=== PATIENT | female | born 1955 | race Caucasian/White ===

== ENCOUNTER 2023-12-25 13:56 | Emergency (ER) | payer BC, SELFPAY ==
[2023-12-25 13:58] VITALS: BP 209/96
[2023-12-25 14:57] VITALS: BP 163/80
--- NOTE | 2023-12-25 14:58 | ED.GENMED ---
History of Present Illness
General
Chief Complaint: Chest Pain
Source: patient
Exam Limitations: none
Time Seen by Provider: 12/25/23 14:57
Nursing documentation reviewed up to this point in time: agreed with
Travel History
Have you had any contact with someone who has COVID-19?: No
Do you have any symptoms of coronavirus? Fever > 100 degrees, chills, cough, shortness of breath, sore throat, loss of taste or smell, muscle aches, or headache?: No
History of Present Illness
History of Present Illness:
The patient is a 68-year-old female with a past medical history of hypertension who presents with 3 days of fairly constant bilateral chest pressure. Patient reports that she also feels slightly more short of breath on exertion. She denies any
cough and fever. She denies leg pain and leg swelling. She denies history of PE and DVT. Currently, the pain is extremely mild. She reports nothing makes the pressure better or worse. There is no radiation of discomfort. Patient denies a
history of coronary artery disease.
Past History
Past History
ED Past Medical History: HTN and Other (Psoriasis)
ED Past Surgical History: Gynecological (Tubal ligation)
Social History
Tobacco: Non-smoker
Alcohol: None
Drug: None
Personal:
Living: with family
Employment: Other
Family History
Family History: Other
Review of Systems
Review of Systems
Allergies reviewed?: Yes
All Other Systems: ROS reviewed and negative except as documented in HPI and ROS
EENT: Reports no symptoms
Respiratory: Reports trouble breathing
Cardiac: Reports chest pain
ABD/GI: Reports no symptoms
: Reports no symptoms
Musculoskeletal: Reports no symptoms
Skin: Reports no symptoms
Neurological: Reports no symptoms
Endocrine: Reports no symptoms
Hematologic/Lymphatic: Reports no symptoms
Psychiatric: Reports no symptoms
Phy Exam
Physical Exam
Physical Exam:
Physical Exam
General: no apparent distress, not acutely ill. Well and comfortable appearing
Neck: supple. no meningeal signs. normal psoterior pharynx
Heart: s1/s2 regular rate and rhythm, no murmur. equal radial pulses.
Lungs: no acute respiratory distress. clear bilaterally. No reproducible chest pain when taking a deep breath
Abdomen: normal bowel sounds. not tender. no CVAT. No pulsatile mass
Neuro: alert and oriented. no focal neurological deficits
Skin: no rash
Psychiatric: well kept. interactive and cooperative
Extremities: no edema. no calf tenderness. negative homans. good distal pulses
Scores
Heart Score for Chest Pain Patients
STEMI patient?: No
History: Slightly or Non-Suspicious
ECG: Normal
Age: >/= 65 years
Risk Factors: 1 or 2 Risk Factors
Troponin: </= Normal Limit
Heart Score for Chest Pain Patients: 3
Heart Score Risk: 2.5% MACE over next 6 weeks
Course
Orders/Labs/Results
Orders:
Orders
12/25/23 14:01
EKG [Electrocardiogram (*1)] Urgent
Reason for Study: Chest Pain
EKG- Treatment ONCE
12/25/23 15:09
CR Chest - 2 Views Urgent
Comment:
Reason For Exam: CP
12/25/23 15:22
Complete Blood Count/With Diff Urgent
Comprehensive Metabolic Panel Urgent
Troponin I Urgent
Abnormal Lab Results
12/25/23
15:22
MCH 31.8 H pg
(27.0-31.0)
MPV 12.5 H fL
(7.4-10.4)
Absolute Monos (auto) 0.8 H 10^3/uL
(0.1-0.6)
Monocytes % 11.0 H %
(1.7-9.3)
Chloride 109 H mmol/L
(98-107)
BUN 20 H mg/dl
(7-17)
Creatinine 0.5 L mg/dL
(0.6-1.0)
Glucose 114 H mg/dl
(70-99)
Calcium 10.3 H mg/dl
(8.4-10.2)
AST 69 H U/L
(14-36)
ALT 55 H U/L
(0-35)
12/25/23 15:22
12/25/23 15:22
Vital Signs
Initial and Last Documented VS:
Initial Vital Signs
Temp Pulse Resp BP Pulse Ox
98.4 F 74 18 209/96 98
12/25/23 13:58 12/25/23 13:58 12/25/23 13:58 12/25/23 13:58 12/25/23 13:58
Last Documented Vital Signs
Temp Pulse Resp BP Pulse Ox
98.4 F 61 16 143/75 96
12/25/23 17:16 12/25/23 17:16 12/25/23 17:16 12/25/23 17:16 12/25/23 17:16
MDM/Problems Addressed
Differential Diagnosis Includes:
Acute coronary syndrome, musculoskeletal chest pain, PE
MDM/Problems Addressed:
Patient presents with acute 3 days of chest tightness
Chronic conditions affecting care: HTN
Acute Exacerbation and/or Progression of Chronic Illness:
Patient is acutely hypertensive, however, on rechecking her blood pressure was 143/75
*Radiology
Radiology exam reviewed: preliminary read by ED provider (Chest x-ray read by me. No acute disease) and radiology read reviewed
*Critical Care Note
Total Time (30-74mins, 75-104mins- exclusive of procedures): Not Applicable
Data Reviewed
Review of Other/Old Records Reveals: Testing (Echo from 2020 showed mild LVH with normal EF)
Source: patient
Patient Management
Social determinants of health affecting care: Living situation and Strong social support
Escalation/DeEscalation of care consider admission/obs:
Patient ravinder very well and comfortable appearing. Given patient has no pleuritic chest pain, hypoxia or tachycardia, it is doubtful she has a PE. In addition, she has had no risk factors for this. It is doubtful she is acute coronary syndrome
because her EKG is normal and troponin is normal
ED Attending Note
-
Portions of this chart may have been created with voice recognition software.� Occasional wrong word or��sound alike� substitutions may have occurred due to the inherent limitations of voice recognition software.
Discharge Plan
Departure
Patient Disposition: Home (Routine Discharge)
Date of Disposition: 12/25/23
Time of Disposition: 16:47
Patient with high blood pressure during this ER visit?: Yes
Condition: Good
Covid-19: Not Applicable
Discharge Problem:
Chest pain in adult
Instructions: Chest Pain DCA Follow Up
Prescriptions:
No Action
multivitamin [Multi-Day] 1 EACH tablet
1 ea PO DAILY
metoprolol tartrate 50 MG tablet
50 mg PO DAILY
B-complex with vitamin C 1 CAPLET tablet
1 cap PO DAILY
losartan-hydrochlorothiazide 1 EACH tablet
1 ea PO DAILY
Vitamin D
1,000 mcg PO DAILY
polyethylene glycol 3350 17 GRAMS powder in packet
17 grams PO DAILY Qty: 30 0RF
Rx Instructions:
continue while on narcotics
oxycodone-acetaminophen 5 MG/325 MG tablet
2 tab PO Q4HPRN PRN (Reason: moderate pain) Qty: 30 0RF
rifampin 300 MG capsule
300 mg PO Q12 0RF
docusate sodium 100 MG capsule
100 mg PO BID Qty: 60 0RF
Rx Instructions:
continue while on narcotics
morphine 15 MG tablet extended release
15 mg PO Q12 Qty: 14 0RF
Saccharomyces boulardii 250 MG capsule
250 mg PO DAILY Qty: 30 0RF
Rx Instructions:
continue while on antibiotics
cefazolin in dextrose (iso-os) 2 GRAM/50 ML piggyback
2 g IV Q6H 0RF
Referrals:
Deni Beck MD [Family Provider] -
Activity Restrictions/Additional Instructions:
If you do not hear from your senior [facility]str[facility] office within 48 hours, please give them a call to schedule an appointment
Interventions
Interventions:
*Risk Screen - Suicide Last Done: 12/25/23 13:58
*General Assessment Last Done: 12/25/23 13:58
*Neglect/Abuse Screening Last Done: 12/25/23 13:58
*ED COVID-19 Vaccine History Last Done: 12/25/23 13:58
*Nursing Disposition Last Done: 12/25/23 17:16
ED- Cardiac Assessment Last Done: 12/25/23 17:11
Discharge Date and Time
Discharge Date/Time: 12/25/23 17:17
Print Language: ALBANIAN
[2023-12-25 14:59] VITALS: BMI 45.6
[2023-12-25 15:00] VITALS: BP 143/75
[2023-12-25 15:39] LABS: % Basophils 0.5 % (0-2); % Eosinophils 2.4 % (0-6); % Immature Granulocytes 0.5 % (0-0.5); % Lymphocytes 30.2 % (20.5-51.1); % Neutrophils 55.4 % (42.2-75.2); Absolute Eosinophils 0.2 10^3/uL (0-0.7); Absolute Lymphocytes 2.3 10^3/uL (1.2-3.4); Absolute Monocytes 0.8 10^3/uL (0.1-0.6); Absolute Neutrophils 4.1 10^3/uL (1.4-6.5); Hematocrit 38.5 % (37.0-47.0); Hemoglobin 13.5 g/dL (12.0-16.0); Mean Corp Hgb Conc. 35.1 g/dL (33.0-37.0); Mean Corpuscular Hgb 31.8 pg (27.0-31.0); Mean Corpuscular Volume 90.6 fL (81.0-99.0); Mean Platelet Volume 12.5 fL (7.4-10.4); Nucleated Red Blood Cells % 0 %; Platelet Count 153 10^3/uL (130-400); Red Blood Cell Count 4.25 10^6/uL (4.20-5.40); Red Cell Dist. Width 13.5 % (11.5-14.5); White Blood Cell Count 7.5 10^3/uL (4.8-10.8)
[2023-12-25 15:58] LABS: ALT (SGPT) 55 U/L (0-35); AST (SGOT) 69 U/L (14-36); Albumin 4.2 g/dl (3.5-5.0); Alkaline Phosphatase 75 U/L (38-126); Blood Urea Nitrogen 20 mg/dl (7-17); Calcium 10.3 mg/dl (8.4-10.2); Carbon Dioxide 22 mmol/L (22-30); Chloride 109 mmol/L (98-107); Estimated Creatinine Clearance > 125 ml/min; Glucose 114 mg/dl (70-99); Potassium 4.2 mmol/L (3.5-5.1); Sodium 137 mmol/L (135-145); Total Bilirubin 0.6 mg/dl (0.2-1.3); Total Protein 7.7 g/dl (6.3-8.2); eGFR > 60.00
[2023-12-25 15:59] LABS: Troponin I < 0.012 ng/ml
[2023-12-25 17:16] VITALS: BP 143/75
== END 2023-12-25 17:17 | disposition home or self-care (01) ==
LOC: EMR 13:56
PROVIDERS: EMERGENCY PHYSICIAN Emergency Medicine; FAMILY PHYSICIAN Family Medicine
DX: R07.89 Other chest pain (principal); I10 Essential (primary) hypertension
CPT/HCPCS: 99285; 71046; 80053; 84484; 85025; 93005

== ENCOUNTER → 2024-01-22 07:37 | Outpatient (REF) | payer BC, SELFPAY | LOC: DHCBC/DCA 07:37 | PROVIDERS: ATTENDING PHYSICIAN Physician Assistant Medical; FAMILY PHYSICIAN Physician Assistant Medical | DX: R07.9 Chest pain, unspecified (principal) | CPT/HCPCS: 78452; 93017; A9500; J2785 ==

== ENCOUNTER → 2024-01-28 10:22 | Outpatient (REF) | payer BC, SELFPAY | LOC: RCS 10:22 | PROVIDERS: ATTENDING PHYSICIAN Physician Assistant Medical; FAMILY PHYSICIAN Physician Assistant Medical | DX: R07.9 Chest pain, unspecified (principal) | CPT/HCPCS: 93306 ==